=== PATIENT | female | born 1950 | race Caucasian/White ===

== ENCOUNTER 2024-02-07 21:28 | Emergency (ER) | payer MEDICARE, BC ==
[~2024-02-07] VITALS: Ht 160 cm; Wt 47.6 kg
[2024-02-07] MEDS ORDERED: MISCELLANEOUS MED PO ONE (23:30)
[2024-02-07] MEDS: APIXABAN 5 MG TABLET ONE (23:50)
[2024-02-08 00:12] VITALS: BP 161/64; TEMP 98.6; O2SAT 100
== END 2024-02-08 00:13 | disposition home or self-care (01) ==
LOC: ER 21:41
DX: I82.4Z2 Acute embolism and thrombosis of unspecified deep veins of left distal lower extremity (principal); R60.0 Localized edema; I10 Essential (primary) hypertension; Z88.0 Allergy status to penicillin; Z88.1 Allergy status to other antibiotic agents; Z88.5 Allergy status to narcotic agent
CPT/HCPCS: A4606; A4663